=== PATIENT | female | born 1965 | race Two or more races ===

== ENCOUNTER → 2023-05-12 | Outpatient (CLI) | payer MEDICAID | END | disposition home or self-care (01) | LOC: RT 08:15 | PROVIDERS: ATTEND Internal Medicine Pulmonary Disease | DX: Z01.818 Encounter for other preprocedural examination (principal); J44.9 Chronic obstructive pulmonary disease, unspecified; R06.09 Other forms of dyspnea | CPT/HCPCS: 94060; 94727; 94729 ==

== ENCOUNTER → 2024-09-02 | Outpatient (CLI) | payer MEDICAID ==
--- NOTE | 2024-09-06 15:55 | DVHNC2 ---
Procedure - Pulmonary function test interpretation September 06, 2024 Moderately severe obstructive ventilatory defect. Significant bronchodilator response. Total lung capacity is 94% of predicted (4.79 L), within normal limits. Mild reduction in diffusion capacity, 65% of predicted. Not corrected for patient's hemoglobin. GLEN GUTIÉRREZ RESIDENT Sep 06, 2024 15:55
== END | disposition home or self-care (01) ==
LOC: RT 13:40
PROVIDERS: ATTEND Internal Medicine Pulmonary Disease
DX: J43.9 Emphysema, unspecified (principal); R06.00 Dyspnea, unspecified
CPT/HCPCS: 94060; 94727; 94729